=== PATIENT | male | born 1980 | race Caucasian/White ===

== ENCOUNTER 2025-03-16 07:12 | Day surgery (SDC) | payer OTHER ==
[~2025-03-16 07:12] MED LIST: Midazolam 1 MG/ML 2 ML SDV ONE; Propofol 200 MG/20 ML SDV ONE; Ropivacaine 0.5% 5 MG/ML 30 ML SDV ONE
[2025-03-16] MEDS ORDERED: dexmedeTOMIDine HCl 200 MCG/2 ML SDV ONE (07:20)
[2025-03-16] MEDS ORDERED: Ondansetron 4 MG/2 ML SDV ONE (07:20)
[2025-03-16] MEDS ORDERED: Bupivacaine 0.5%/EPINEPHrine 1:200,000 30 ML SDV ONE (07:26)
[2025-03-16] MEDS: Lactated Ringers 1,000 ML IV SCH (07:43)
[2025-03-16] MEDS ORDERED: ceFAZolin 2 GM in Water For Injection, Sterile 20 ML IVPUSH ONE (08:00)
[2025-03-16] MEDS ORDERED: Naloxone 0.4 MG/ML SDV IVPUSH PRN (08:23)
[2025-03-16] MEDS ORDERED: Albuterol 0.083% 2.5 MG/3 ML Neb Soln NEB PRN (08:23)
[2025-03-16] MEDS ORDERED: fentaNYL 50 MCG/ML SDV IVPUSH PRN (08:23)
[2025-03-16] MEDS ORDERED: Ondansetron 4 MG/2 ML SDV IVPUSH PRN (08:23)
[2025-03-16] MEDS ORDERED: Dexamethasone 4 MG/ML 5 ML MDV ONE (08:34)
[2025-03-16] MEDS ORDERED: Phenylephrine 1% 10 MG/ML SDV ONE (08:38)
[2025-03-16] MEDS ORDERED: ePHEDrine 50 MG/ML SDV ONE (09:13)
== END 2025-03-16 12:15 | disposition home or self-care (01) ==
LOC: MW.SDS 07:12
PROVIDERS: ATTEND Orthopaedic Surgery
DX: M75.101 Unspecified rotator cuff tear or rupture of right shoulder, not specified as traumatic (principal)
CPT/HCPCS: 29826; 29827; 64415; J0166; J0690; J1100; J2003; J2250; J2371; J2704; J2795; J7120; 01630; C1713; J0665; J2405; J3490